=== PATIENT | male | born 1960 | race Caucasian/White ===

== ENCOUNTER 2020-08-28 09:51 | Emergency (ER) | payer OTHER, SELFPAY ==
[2020-08-28 09:58] VITALS: BP 154/89; PULSE 75; RESP 16; TEMP 36.9; O2SAT 100
--- NOTE | 2020-08-28 10:01 | ED.DENTAL ---
HPI - Dental/Oral General Chief complaint: Dental/Oral Stated complaint: tooth pain Source: patient Mode of arrival: ambulatory Limitations: no limitations History of Present Illness HPI Narrative: Patient is a 60 year old male who presents with left lower dental pain x 2 weeks. He reports sensitivity to hot and cold. He reports taking Tylenol, Ibuprofen and steroid which was prescribed by dentist without relief. He denies other complaints at this time. MD Complaint: tooth pain Related Data Home Medications Medication Instructions Recorded Confirmed ezetimibe mg 08/28/20 methylprednisolone mg 08/28/20 Allergies Allergy/AdvReac Type Severity Reaction Status Date / Time No Known Allergies Allergy Verified 01/17/17 08:20 Review of Systems Review of Systems: Narrative: CONSTITUTIONAL: Denies fever, chills, or sweats. EYES: Denies visual changes, redness, or discharge. ENT: Denies rhinorrhea, congestion, sore throat, or otalgia. Left lower dental pain CARDIOVASCULAR: Denies chest pain, palpitations, or edema. RESPIRATORY: Denies cough or dyspnea. GASTROINTESTINAL: Denies abdominal pain, nausea, vomiting, or diarrhea. GENITOURINARY: Denies dysuria or hematuria. SKIN: Denies rash or itching. MUSCULOSKELETAL: Denies back pain, joint pain, or myalgia. NEUROLOGIC: Denies headache, numbness, dizziness, or weakness. PSYCHIATRIC: Denies anxiety or depression. [facility] Past Medical History Medical History Diverticulitis HLD (hyperlipidemia) Surgical History Surgical History History of heart artery stent Hx of cardiac cath Family History Family History Father Family history of premature coronary heart disease, Onset Age: 40 Hypertension Family history of elevated blood lipids Patient's father is Mother Cerebrovascular accident, Onset Age: 80 Patient's mother is Social History Social History (Updated 08/28/20 @ 10:02 by RILEY Connell) Smoking status: Never smoker Alcohol intake: current Alcohol use details: Occasional Substance use: never Occupation/Education: occupation Gender identity (if verbalized by the patient): Male Comments At the time of signature, I have reviewed and agree with nursing past medical, surgical, social, and family history unless otherwise noted. Please see nursing chart for further information. There is no relevant family history pertinent to the presenting complaint. Exam Narrative: Exam Narrative: GENERAL: Well-appearing, well-nourished, and in no acute distress. HEAD: Normocephalic, atraumatic. EYES: EOMI. No redness or drainage. Conjunctiva are normal. ENT: Mucous membranes pink and moist. Mild erythema and edema around tooth#19 NECK: AROM. Supple. No lymphadenopathy. CHEST: No respiratory distress. HEART: Regular rate and rhythm. EXTREMITIES: Normal range of motion. SKIN: Warm, dry, no rash. NEURO: No focal deficits. Alert and oriented x3. Gait steady. PSYCH: Normal affect. No signs of depression or anxiety. Course Vital Signs Vital signs: Vital Signs Temperature 36.9 C 08/28/20 09:58 Pulse Rate 75 08/28/20 09:58 Respiratory Rate 16 08/28/20 09:58 Blood Pressure 154/89 H 08/28/20 09:58 Pulse Oximetry 100 08/28/20 09:58 Temperature 36.9 C 08/28/20 09:58 Pulse Rate 75 08/28/20 09:58 Respiratory Rate 16 08/28/20 09:58 Blood Pressure 154/89 H 08/28/20 09:58 Pulse Oximetry 100 08/28/20 09:58 Reviewed. Patient has been instructed to follow-up with his PCP regarding his blood pressure. MDM - Dental/Oral MDM Narrative Medical decision making narrative: Discussed with patient most likely cause of dental pain is underlying infection. Patient to be started on Augmentin at this time. Patient to follow-u
== END 2020-08-28 10:20 | disposition home or self-care (01) ==
PROVIDERS: Emergency Provider Nurse Practitioner; PCP Nurse Practitioner
DX: K08.89 Other specified disorders of teeth and supporting structures (principal); E78.5 Hyperlipidemia, unspecified; Z95.5 Presence of coronary angioplasty implant and graft
CPT/HCPCS: 99213; G0463